=== PATIENT | female | born 1965 | race African-American/Black ===

== ENCOUNTER 2021-04-02 14:31 | Inpatient (IN) | payer MEDICARE, MEDICAID ==
[~2021-04-02] VITALS: Ht 170.2 cm; Wt 51.8 kg
[~2021-04-02 14:31] MED LIST: ALPR1TAB2 MT
[2021-04-02 17:14] LABS: BASOPHILS % 1.9 % (0.0-2.0); EOSINOPHILS % 0.6 % (0.0-5.0); LYMPHOCYTES % 7.6 % (20.0-50.0); MEAN CORPUSCULAR HEMOGLOBIN 31.8 pg (28.0-32.0); MEAN CORPUSCULAR VOLUME 94.6 fL (81.0-99.0); MEAN PLATELET VOLUME 7.6 fl (7.4-10.4); MONOCYTES % 11.8 % (2.0-8.0); NEUTROPHILS % 78.1 % (40.0-76.0); PLATELET 315 x1000/uL (130-400); RED BLOOD CELL COUNT 1.79 mill/uL (4.2-5.4); RED CELL DISTRIBUTION WIDTH 18.9 % (11.6-14.6)
[2021-04-02 17:18] LABS: HEMATOCRIT. 16.9 % (36.0-48.0); HEMOGLOBIN. 5.7 g/dL (12.0-16.0)
[2021-04-02 17:20] LABS: CHLORIDE 100 mEq/L (98-107)
[2021-04-02] MEDS ORDERED: MORPHINE SULFATE 4 MG/ML CPJ (NOT FOR IM USE) IV ONE (17:30)
[2021-04-02] MEDS ORDERED: FUROSEMIDE 100MG/10ML VIAL IV STA (18:36)
[2021-04-02] MEDS ORDERED: ONDANSETRON HCL 4MG/2ML INJ IV ONE (18:45)
[2021-04-02] MEDS ORDERED: INSULIN REGULAR (HUMULIN R) 300UNITS/3ML VIAL IV ONE (18:45)
[2021-04-02] MEDS ORDERED: CALCIUM CHLORIDE 1GM/10ML SYR IV ONE (18:45)
[2021-04-02] MEDS ORDERED: DEXTROSE 50% WATER 50ML SYRINGE IV ONE ×2 (18:45→22:00)
[2021-04-02] MEDS ORDERED: ALBUTEROL (0.083%) 2.5MG/3ML NEB HHN ONE (18:45)
[2021-04-02] MEDS ORDERED: LORAZEPAM 2MG/ML CPJ IV ONE (20:45)
[2021-04-02] MEDS ORDERED: CALCIUM GLUCONATE 100MG/ML 10ML VIAL IV ONE (20:45)
[2021-04-02] MEDS ORDERED: SODIUM BICARBONATE 8.4% 1 MEQ/ML 50ML SYR IV NR (22:00)
[2021-04-02] MEDS ORDERED: INSULIN REGULAR (HUMULIN R) 300UNITS/3ML VIAL IV NR (22:00)
[2021-04-02 22:05] VITALS: BP 176/101
[2021-04-02 23:00] VITALS: BP 166/106
[2021-04-02 23:17] LABS: HEPATITIS B SURFACE ANTIGEN NEGATIVE
[2021-04-02 23:47] LABS: HEPATITIS A AB IGM NEGATIVE (NEGATIVE)
[2021-04-03] VITALS (13 sets, daily range): BP systolic 101–164; BP diastolic 62–110
[2021-04-03] MEDS ORDERED: ONDANSETRON HCL 4MG/2ML INJ IV PRN (01:30)
[2021-04-03] MEDS ORDERED: NALOXONE HCL 0.4MG/ML VIAL IV PRN (01:30)
[2021-04-03] MEDS ORDERED: MAGNESIUM/ALUMINUM HYDROXIDE/SIMETHICONE 30ML UDC PO PRN (01:30)
[2021-04-03] MEDS ORDERED: ACETAMINOPHEN 325MG TABLET PO PRN (01:30)
[2021-04-03] MEDS ORDERED: DOCUSATE SODIUM 100MG CAPSULE PO PRN (01:30)
[2021-04-03] MEDS ORDERED: CLONIDINE 0.1MG TABLET PO PRN (01:30)
[2021-04-03] MEDS: AMLODIPINE 10MG TABLET PO SCH ×2 (01:54→12:00)
[2021-04-03] MEDS: METOPROLOL TARTRATE 25MG TABLET PO SCH ×2 (01:54→10:00)
[2021-04-03] MEDS: DIPHENHYDRAMINE 50MG/ML VIAL IV PRN ×5 (01:55→23:29)
[2021-04-03] MEDS: MORPHINE SULFATE 2 MG/ML CPJ (NOT FOR IM USE) IV PRN ×2 (01:55→06:18)
[2021-04-03 07:05] LABS: HEMATOCRIT. 21.7 % (36.0-48.0); HEMOGLOBIN. 7.3 g/dL (12.0-16.0); MEAN CORPUSCULAR HEMOGLOBIN 31.5 pg (28.0-32.0); MEAN CORPUSCULAR VOLUME 93.9 fL (81.0-99.0); MEAN PLATELET VOLUME 8.6 fl (7.4-10.4); PLATELET 297 x1000/uL (130-400); RED BLOOD CELL COUNT 2.31 mill/uL (4.2-5.4)
[2021-04-03] MEDS ORDERED: HYDROMORPHONE HCL/PF 2MG/ML CPJ IV PRN (09:15)
[2021-04-03] MEDS ORDERED: LIDOCAINE HCL 1% 20ML VIAL (Pyxis) INJ ONE (10:36)
[2021-04-03] MEDS ORDERED: PHEN100C12 PO (11:17)
[2021-04-03] MEDS ORDERED: CARV12.545 MT (11:17)
[2021-04-03] MEDS ORDERED: LEVO100T9 MT (11:17)
[2021-04-03] MEDS ORDERED: HYDR-4135 MT (11:17)
[2021-04-03] MEDS ORDERED: VANCOMYCIN 1 G PREMIX 200 ML IV NR (12:00)
[2021-04-03] MEDS: HYDROMORPHONE HCL/PF 2MG/ML CPJ IV PRN ×3 (12:00→22:30)
[2021-04-03] MEDS: HYDRALAZINE HCL 50MG TABLET PO SCH ×2 (13:00→21:46)
[2021-04-03] MEDS: PHENYTOIN SODIUM EXTENDED 100MG CAPSULE PO SCH ×2 (14:56→21:45)
[2021-04-03] MEDS: ALPRAZOLAM 0.5 MG TABLET PO SCH ×2 (14:57→21:45)
[2021-04-03] MEDS: LEVOTHYROXINE SODIUM 100MCG TABLET PO SCH (14:57)
[2021-04-03] MEDS: CARVEDILOL 12.5MG TABLET PO SCH ×2 (15:14→21:46)
[2021-04-03 22:19] LABS: PLATELET ESTIMATE NORMAL
[2021-04-04] VITALS (10 sets, daily range): BP systolic 93–162; BP diastolic 42–82
[2021-04-04] MEDS: DIPHENHYDRAMINE 50MG/ML VIAL IV PRN ×4 (05:39→20:15)
[2021-04-04] MEDS: HYDROMORPHONE HCL/PF 2MG/ML CPJ IV PRN ×3 (05:41→18:22)
[2021-04-04] MEDS: PHENYTOIN SODIUM EXTENDED 100MG CAPSULE PO SCH ×3 (05:41→20:15)
[2021-04-04] MEDS: ALPRAZOLAM 0.5 MG TABLET PO SCH ×3 (05:41→22:39)
[2021-04-04] MEDS: AMLODIPINE 10MG TABLET PO SCH ×2 (08:50→09:00)
[2021-04-04] MEDS: LEVOTHYROXINE SODIUM 100MCG TABLET PO SCH (08:50)
[2021-04-04] MEDS: CARVEDILOL 12.5MG TABLET PO SCH ×2 (08:51→20:16)
[2021-04-04] MEDS: HYDRALAZINE HCL 50MG TABLET PO SCH ×2 (08:52→20:16)
[2021-04-04 08:56] LABS: HEMATOCRIT. 28.9 % (36.0-48.0); HEMOGLOBIN. 9.8 g/dL (12.0-16.0); MEAN CORPUSCULAR HEMOGLOBIN 31.3 pg (28.0-32.0); MEAN CORPUSCULAR VOLUME 91.9 fL (81.0-99.0); MEAN PLATELET VOLUME 8.5 fl (7.4-10.4); PLATELET 256 x1000/uL (130-400); RED BLOOD CELL COUNT 3.15 mill/uL (4.2-5.4); RED CELL DISTRIBUTION WIDTH 19.2 % (11.6-14.6)
[2021-04-04] MEDS ORDERED: DIPHENHYDRAMINE 50MG/ML VIAL IV NR (10:30)
[2021-04-04 18:00] LABS: PLATELET ESTIMATE NORMAL
[2021-04-05] MEDS: HYDROMORPHONE HCL/PF 2MG/ML CPJ IV PRN ×3 (00:24→19:52)
[2021-04-05] MEDS: DIPHENHYDRAMINE 50MG/ML VIAL IV PRN ×5 (01:55→21:59)
[2021-04-05 03:48] VITALS: BP 105/72
[2021-04-05] MEDS: PHENYTOIN SODIUM EXTENDED 100MG CAPSULE PO SCH ×3 (06:23→21:58)
[2021-04-05] MEDS: ALPRAZOLAM 0.5 MG TABLET PO SCH ×3 (06:23→21:58)
[2021-04-05 08:00] VITALS: BP 122/97
[2021-04-05] MEDS: LEVOTHYROXINE SODIUM 100MCG TABLET PO SCH (08:12)
[2021-04-05] MEDS: HYDROCODONE/ACETAMINOPHEN 5/325MG TABLET PO PRN (08:13)
[2021-04-05] MEDS: CARVEDILOL 12.5MG TABLET PO SCH ×2 (08:54→21:59)
[2021-04-05] MEDS: HYDRALAZINE HCL 50MG TABLET PO SCH ×2 (08:54→21:58)
[2021-04-05] MEDS: AMLODIPINE 10MG TABLET PO SCH (08:54)
[2021-04-05] MEDS ORDERED: HEPARIN SODIUM 1,000 UNIT/1ML VIAL IV NR (10:00)
[2021-04-05 12:00] VITALS: BP 135/81
[2021-04-05 16:00] VITALS: BP 124/80
[2021-04-05 20:00] VITALS: BP 139/85
[2021-04-06] MEDS: HYDROMORPHONE HCL/PF 2MG/ML CPJ IV PRN ×4 (02:11→21:24)
[2021-04-06 04:45] VITALS: BP 133/87
[2021-04-06] MEDS: DIPHENHYDRAMINE 50MG/ML VIAL IV PRN ×4 (05:20→22:50)
[2021-04-06] MEDS: ALPRAZOLAM 0.5 MG TABLET PO SCH ×3 (05:44→21:22)
[2021-04-06] MEDS: PHENYTOIN SODIUM EXTENDED 100MG CAPSULE PO SCH ×3 (05:45→21:22)
[2021-04-06 08:00] VITALS: BP 138/91
[2021-04-06] MEDS: LEVOTHYROXINE SODIUM 100MCG TABLET PO SCH (08:51)
[2021-04-06] MEDS: CARVEDILOL 12.5MG TABLET PO SCH ×2 (08:52→21:21)
[2021-04-06] MEDS: AMLODIPINE 10MG TABLET PO SCH (08:53)
[2021-04-06] MEDS: HYDRALAZINE HCL 50MG TABLET PO SCH ×2 (08:53→21:22)
[2021-04-06 12:00] VITALS: BP 158/82
[2021-04-06] MEDS: HYDROCODONE/ACETAMINOPHEN 5/325MG TABLET PO PRN ×2 (13:08→18:51)
[2021-04-06 16:00] VITALS: BP 120/82
[2021-04-06 20:00] VITALS: BP 134/91
[2021-04-06 20:13] LABS: HEPATITIS B SURFACE ANTIGEN NEGATIVE
[2021-04-06 20:42] LABS: HEPATITIS A AB IGM NEGATIVE (NEGATIVE)
[2021-04-07] VITALS (7 sets, daily range): BP systolic 101–147; BP diastolic 63–101
[2021-04-07] MEDS: HYDROCODONE/ACETAMINOPHEN 5/325MG TABLET PO PRN ×2 (01:32→08:46)
[2021-04-07] MEDS: HYDROMORPHONE HCL/PF 2MG/ML CPJ IV PRN ×2 (03:48→10:17)
[2021-04-07] MEDS: DIPHENHYDRAMINE 50MG/ML VIAL IV PRN ×2 (06:06→11:16)
[2021-04-07] MEDS: ALPRAZOLAM 0.5 MG TABLET PO SCH (06:06)
[2021-04-07] MEDS: PHENYTOIN SODIUM EXTENDED 100MG CAPSULE PO SCH (06:06)
[2021-04-07 07:14] LABS: BASOPHILS % 0.8 % (0.0-2.0); HEMATOCRIT. 27.9 % (36.0-48.0); HEMOGLOBIN. 9.1 g/dL (12.0-16.0); LYMPHOCYTES % 18.3 % (20.0-50.0); MEAN CORPUSCULAR VOLUME 94.5 fL (81.0-99.0); MEAN PLATELET VOLUME 8.2 fl (7.4-10.4); MONOCYTES % 13.1 % (2.0-8.0); NEUTROPHILS % 61.8 % (40.0-76.0); PLATELET 333 x1000/uL (130-400); RED BLOOD CELL COUNT 2.95 mill/uL (4.2-5.4); RED CELL DISTRIBUTION WIDTH 18.7 % (11.6-14.6)
[2021-04-07] MEDS: LEVOTHYROXINE SODIUM 100MCG TABLET PO SCH (08:46)
[2021-04-07] MEDS: CARVEDILOL 12.5MG TABLET PO SCH (08:46)
[2021-04-07] MEDS: AMLODIPINE 10MG TABLET PO SCH (08:47)
[2021-04-07] MEDS: HYDRALAZINE HCL 50MG TABLET PO SCH (08:47)
[2021-04-07] MEDS ORDERED: VANCOMYCIN 750 MG PREMIX 150 ML IV NR (12:00)
== END 2021-04-07 18:24 | disposition home health service (06) | DRG 470 ==
LOC: ER 14:31 → 5EST 19:03 → ENRESERV 20:33
PROVIDERS: ADMIT Hospitalist; ATTEND Hospitalist
PROC: 30233N1 Transfusion of Nonautologous Red Blood Cells into Peripheral Vein, Percutaneous Approach (ICD-10-PCS; 2021-04-02)
PROC: 5A1D70Z Performance of Urinary Filtration, Intermittent, Less than 6 Hours Per Day (ICD-10-PCS; principal; 2021-04-03)
PROC: 02HV33Z Insertion of Infusion Device into Superior Vena Cava, Percutaneous Approach (ICD-10-PCS; 2021-04-03)
PROC: B548ZZA Ultrasonography of Superior Vena Cava, Guidance (ICD-10-PCS; 2021-04-03)
PROC: 5A1D70Z Performance of Urinary Filtration, Intermittent, Less than 6 Hours Per Day (ICD-10-PCS; 2021-04-05)
PROC: 5A1D70Z Performance of Urinary Filtration, Intermittent, Less than 6 Hours Per Day (ICD-10-PCS; 2021-04-07)
DX: N18.6 End stage renal disease (principal); I50.33 Acute on chronic diastolic (congestive) heart failure; E44.0 Moderate protein-calorie malnutrition; D63.1 Anemia in chronic kidney disease; E11.22 Type 2 diabetes mellitus with diabetic chronic kidney disease; E87.1 Hypo-osmolality and hyponatremia; K74.60 Unspecified cirrhosis of liver; I13.2 Hypertensive heart and chronic kidney disease with heart failure and with stage 5 chronic kidney disease, or end stage renal disease; E03.9 Hypothyroidism, unspecified; E78.5 Hyperlipidemia, unspecified; E87.5 Hyperkalemia; R07.89 Other chest pain; F17.200 Nicotine dependence, unspecified, uncomplicated; F10.10 Alcohol abuse, uncomplicated; Z20.822 Contact with and (suspected) exposure to COVID-19; F31.9 Bipolar disorder, unspecified; G40.909 Epilepsy, unspecified, not intractable, without status epilepticus; G89.4 Chronic pain syndrome; Y90.9 Presence of alcohol in blood, level not specified; F41.9 Anxiety disorder, unspecified; Z99.2 Dependence on renal dialysis; Z91.018 Allergy to other foods; Z82.49 Family history of ischemic heart disease and other diseases of the circulatory system; Z71.6 Tobacco abuse counseling; Z68.1 Body mass index [BMI] 19.9 or less, adult
CPT/HCPCS: 36415; 71045; 76937; 80048; 80053; 80202; 83880; 84132; 84484; 85025; 86705; 86709; 86803; 86850; 86900; 86920; 87340; 87426; 93005; 94640; 99285; C1725; J0610; J1170; J1200; J1644; J1815; J1940; J2060; J2270; J2405; J3370; J3490; P9016

== ENCOUNTER 2021-04-28 12:44 | Inpatient (IN) | payer MEDICARE, MEDICAID ==
[~2021-04-28] VITALS: Ht 170.2 cm; Wt 52.6 kg
[2021-04-28 08:00] VITALS: BP 164/114
[~2021-04-28 12:44] MED LIST changes: +CARV12.545 MT; +HYDR-4135 MT; +LEVO100T9 MT; +PHEN100C12 PO
[2021-04-28] MEDS ORDERED: ASPIRIN 325MG TABLET PO ONE (13:45)
[2021-04-28] MEDS ORDERED: ACETAMINOPHEN 325MG TABLET PO ONE (13:45)
[2021-04-28] MEDS ORDERED: MORPHINE SULFATE 4 MG/ML CPJ (NOT FOR IM USE) IV ONE (14:45)
[2021-04-28 15:13] LABS: EOSINOPHILS % 2.3 % (0.0-5.0); HEMATOCRIT. 24.3 % (36.0-48.0); LYMPHOCYTES % 12.4 % (20.0-50.0); MEAN CORPUSCULAR HEMOGLOBIN 30.7 pg (28.0-32.0); MEAN CORPUSCULAR VOLUME 93.3 fL (81.0-99.0); MEAN PLATELET VOLUME 7.7 fl (7.4-10.4); MONOCYTES % 6.9 % (2.0-8.0); NEUTROPHILS % 77.4 % (40.0-76.0); PLATELET 375 x1000/uL (130-400); RED CELL DISTRIBUTION WIDTH 18.2 % (11.6-14.6)
[2021-04-28 15:21] LABS: CHLORIDE 98 mEq/L (98-107)
[2021-04-28 17:55] LABS: HEPATITIS B SURFACE ANTIGEN NEGATIVE
[2021-04-28 18:00] VITALS: BP 167/114
[2021-04-28] MEDS: LORAZEPAM 2MG/ML CPJ IV PRN (18:12)
[2021-04-28] MEDS ORDERED: HYDRALAZINE 20MG/ML VIAL IV PRN (18:15)
[2021-04-28] MEDS: DIPHENHYDRAMINE 50MG/ML VIAL IV PRN (18:15)
[2021-04-28] MEDS ORDERED: MAGNESIUM/ALUMINUM HYDROXIDE/SIMETHICONE 30ML UDC PO PRN (19:30)
[2021-04-28] MEDS ORDERED: DIPHENHYDRAMINE 50MG/ML VIAL IV PRN (19:30)
[2021-04-28] MEDS ORDERED: ACETAMINOPHEN 325MG TABLET PO PRN (19:30)
[2021-04-28] MEDS ORDERED: CLONIDINE 0.1MG TABLET PO PRN (19:30)
[2021-04-28] MEDS ORDERED: ONDANSETRON HCL 4MG/2ML INJ IV PRN (19:30)
[2021-04-28 20:00] VITALS: BP 155/101
[2021-04-28] MEDS ORDERED: HYDRALAZINE 20MG/ML VIAL IV SCH (20:00)
[2021-04-28] MEDS: ALPRAZOLAM 0.5 MG TABLET PO PRN (20:39)
[2021-04-28] MEDS ORDERED: VANCOMYCIN 1 G PREMIX 200 ML IV NR (21:00)
[2021-04-28] MEDS: AMLODIPINE 5MG TABLET PO SCH (21:30)
[2021-04-28] MEDS: CARVEDILOL 12.5MG TABLET PO SCH (21:37)
[2021-04-28] MEDS: SODIUM CHLORIDE 0.9% INJ 3ML FLUSH IVF SCH (21:38)
[2021-04-28] MEDS: PHENYTOIN SODIUM EXTENDED 100MG CAPSULE PO SCH (21:42)
[2021-04-28] MEDS: HYDRALAZINE HCL 100MG TABLET PO SCH (22:00)
[2021-04-28] MEDS: CEFEPIME 500 MG in DEXTROSE 5% WATER 50 ML IV SCH (23:41)
[2021-04-29 00:19] VITALS: BP 129/60
[2021-04-29] MEDS: DIPHENHYDRAMINE 50MG/ML VIAL IV PRN ×4 (02:30→18:57)
[2021-04-29] MEDS: ACETAMINOPHEN 325MG TABLET PO PRN ×3 (02:30→20:16)
[2021-04-29 04:37] VITALS: BP 125/85
[2021-04-29] MEDS: PHENYTOIN SODIUM EXTENDED 100MG CAPSULE PO SCH ×3 (05:09→22:10)
[2021-04-29] MEDS: SODIUM CHLORIDE 0.9% INJ 3ML FLUSH IVF SCH ×3 (05:09→22:11)
[2021-04-29] MEDS: ALPRAZOLAM 0.5 MG TABLET PO PRN ×3 (05:09→22:01)
[2021-04-29] MEDS: HYDRALAZINE HCL 100MG TABLET PO SCH ×3 (05:10→21:15)
[2021-04-29] MEDS: LEVOTHYROXINE SODIUM 100MCG TABLET PO SCH (05:10)
[2021-04-29 08:00] VITALS: BP_SYST 120; BP_SYST 153; BP_DIAS 83; BP_DIAS 94
[2021-04-29] MEDS: AMLODIPINE 5MG TABLET PO SCH ×2 (09:00→20:07)
[2021-04-29] MEDS: CARVEDILOL 12.5MG TABLET PO SCH ×2 (09:00→20:06)
[2021-04-29] MEDS ORDERED: HEPARIN SODIUM 1,000 UNIT/1ML VIAL IV SCH (09:15)
[2021-04-29 12:00] VITALS: BP 153/94
[2021-04-29 13:17] LABS: BASOPHILS % 1.2 % (0.0-2.0); EOSINOPHILS % 6.1 % (0.0-5.0); HEMATOCRIT. 24.7 % (36.0-48.0); HEMOGLOBIN. 8.1 g/dL (12.0-16.0); LYMPHOCYTES % 11.8 % (20.0-50.0); MEAN CORPUSCULAR HEMOGLOBIN 31.3 pg (28.0-32.0); MEAN PLATELET VOLUME 7.8 fl (7.4-10.4); MONOCYTES % 9.4 % (2.0-8.0); NEUTROPHILS % 71.5 % (40.0-76.0); PLATELET 314 x1000/uL (130-400); RED CELL DISTRIBUTION WIDTH 18.3 % (11.6-14.6)
[2021-04-29] MEDS ORDERED: VANCOMYCIN 500 MG PREMIX 100 ML IV SCH (14:00)
[2021-04-29 16:00] VITALS: BP 140/95
[2021-04-29 20:00] VITALS: BP 158/96
[2021-04-29] MEDS: ZOLPIDEM TARTRATE 5MG TABLET PO PRN (20:07)
[2021-04-29] MEDS: LORAZEPAM 2MG/ML CPJ IV PRN (21:15)
[2021-04-29] MEDS: CEFEPIME 500 MG in DEXTROSE 5% WATER 50 ML IV SCH (22:24)
[2021-04-30] VITALS: BP 155/90
[2021-04-30 04:00] VITALS: BP 158/89
[2021-04-30] MEDS: LORAZEPAM 2MG/ML CPJ IV PRN ×3 (04:10→21:09)
[2021-04-30] MEDS: DIPHENHYDRAMINE 50MG/ML VIAL IV PRN ×3 (04:10→18:18)
[2021-04-30] MEDS: LEVOTHYROXINE SODIUM 100MCG TABLET PO SCH (05:17)
[2021-04-30] MEDS: HYDRALAZINE HCL 100MG TABLET PO SCH ×3 (05:17→23:13)
[2021-04-30] MEDS: SODIUM CHLORIDE 0.9% INJ 3ML FLUSH IVF SCH ×3 (05:17→22:49)
[2021-04-30] MEDS: PHENYTOIN SODIUM EXTENDED 100MG CAPSULE PO SCH ×3 (05:17→23:12)
[2021-04-30 08:00] VITALS: BP 144/95
[2021-04-30] MEDS: AMLODIPINE 5MG TABLET PO SCH ×2 (08:36→23:13)
[2021-04-30] MEDS: ALPRAZOLAM 0.5 MG TABLET PO PRN ×3 (08:37→22:49)
[2021-04-30] MEDS: CARVEDILOL 12.5MG TABLET PO SCH ×2 (08:37→23:13)
[2021-04-30 09:46] LABS: BASOPHILS % 1.1 % (0.0-2.0); EOSINOPHILS % 7.9 % (0.0-5.0); HEMATOCRIT. 25.2 % (36.0-48.0); HEMOGLOBIN. 8.1 g/dL (12.0-16.0); LYMPHOCYTES % 13.6 % (20.0-50.0); MEAN CORPUSCULAR HEMOGLOBIN 31.1 pg (28.0-32.0); MEAN CORPUSCULAR VOLUME 96.9 fL (81.0-99.0); MEAN PLATELET VOLUME 7.9 fl (7.4-10.4); MONOCYTES % 14.9 % (2.0-8.0); NEUTROPHILS % 62.5 % (40.0-76.0); PLATELET 260 x1000/uL (130-400)
[2021-04-30] MEDS: HYDROMORPHONE HCL/PF 2MG/ML CPJ IV PRN ×2 (11:56→19:32)
[2021-04-30 12:00] VITALS: BP 147/67
[2021-04-30 16:00] VITALS: BP 136/72
[2021-04-30 20:03] VITALS: BP 148/92
[2021-04-30] MEDS ORDERED: NALOXONE HCL 0.4MG/ML VIAL IV PRN (22:30)
[2021-04-30] MEDS: CEFEPIME 500 MG in DEXTROSE 5% WATER 50 ML IV SCH (22:39)
[2021-05-01] VITALS: BP 141/82
[2021-05-01] MEDS: ZOLPIDEM TARTRATE 5MG TABLET PO PRN (00:40)
[2021-05-01] MEDS: HYDROMORPHONE HCL/PF 2MG/ML CPJ IV PRN ×4 (01:40→22:48)
[2021-05-01 04:00] VITALS: BP 123/81
[2021-05-01] MEDS: DIPHENHYDRAMINE 50MG/ML VIAL IV PRN ×3 (04:32→19:51)
[2021-05-01] MEDS: PHENYTOIN SODIUM EXTENDED 100MG CAPSULE PO SCH ×3 (05:41→19:51)
[2021-05-01] MEDS: HYDRALAZINE HCL 100MG TABLET PO SCH ×3 (05:43→19:52)
[2021-05-01] MEDS: LORAZEPAM 2MG/ML CPJ IV PRN ×2 (05:50→17:30)
[2021-05-01] MEDS: SODIUM CHLORIDE 0.9% INJ 3ML FLUSH IVF SCH ×3 (06:39→21:30)
[2021-05-01] MEDS: LEVOTHYROXINE SODIUM 100MCG TABLET PO SCH (06:39)
[2021-05-01 07:33] LABS: BASOPHILS % 0.5 % (0.0-2.0); EOSINOPHILS % 7.6 % (0.0-5.0); HEMATOCRIT. 24.8 % (36.0-48.0); LYMPHOCYTES % 20.4 % (20.0-50.0); MEAN CORPUSCULAR VOLUME 99.4 fL (81.0-99.0); MEAN PLATELET VOLUME 7.9 fl (7.4-10.4); NEUTROPHILS % 58.5 % (40.0-76.0); PLATELET 283 x1000/uL (130-400); RED CELL DISTRIBUTION WIDTH 18.4 % (11.6-14.6)
[2021-05-01 08:00] VITALS: BP 121/88
[2021-05-01] MEDS: CARVEDILOL 12.5MG TABLET PO SCH ×2 (09:21→19:52)
[2021-05-01] MEDS: AMLODIPINE 5MG TABLET PO SCH ×2 (09:22→19:51)
[2021-05-01] MEDS: ALPRAZOLAM 0.5 MG TABLET PO PRN ×2 (11:32→19:51)
[2021-05-01 12:00] VITALS: BP 117/86
[2021-05-01 16:00] VITALS: BP 123/82
[2021-05-01] MEDS: CEFEPIME 500 MG in DEXTROSE 5% WATER 50 ML IV SCH (19:50)
[2021-05-01 20:00] VITALS: BP 155/112
[2021-05-02] VITALS: BP 138/84
[2021-05-02] MEDS: LORAZEPAM 2MG/ML CPJ IV PRN ×2 (00:15→09:47)
[2021-05-02] MEDS: DIPHENHYDRAMINE 50MG/ML VIAL IV PRN ×2 (01:58→09:47)
[2021-05-02] MEDS: ALPRAZOLAM 0.5 MG TABLET PO PRN ×2 (03:58→12:25)
[2021-05-02 04:00] VITALS: BP 141/88
[2021-05-02] MEDS: HYDROMORPHONE HCL/PF 2MG/ML CPJ IV PRN (04:45)
[2021-05-02] MEDS: PHENYTOIN SODIUM EXTENDED 100MG CAPSULE PO SCH ×2 (05:27→14:18)
[2021-05-02] MEDS: HYDRALAZINE HCL 100MG TABLET PO SCH ×2 (05:27→14:17)
[2021-05-02] MEDS: SODIUM CHLORIDE 0.9% INJ 3ML FLUSH IVF SCH (05:27)
[2021-05-02] MEDS: LEVOTHYROXINE SODIUM 100MCG TABLET PO SCH (05:27)
[2021-05-02 07:21] LABS: BASOPHILS % 1.4 % (0.0-2.0); EOSINOPHILS % 7.5 % (0.0-5.0); HEMATOCRIT. 23.9 % (36.0-48.0); HEMOGLOBIN. 7.9 g/dL (12.0-16.0); LYMPHOCYTES % 17.8 % (20.0-50.0); MEAN CORPUSCULAR HEMOGLOBIN 31.3 pg (28.0-32.0); MEAN CORPUSCULAR VOLUME 94.3 fL (81.0-99.0); MEAN PLATELET VOLUME 8.4 fl (7.4-10.4); MONOCYTES % 14.6 % (2.0-8.0); NEUTROPHILS % 58.7 % (40.0-76.0); PLATELET 275 x1000/uL (130-400); RED BLOOD CELL COUNT 2.53 mill/uL (4.2-5.4); RED CELL DISTRIBUTION WIDTH 17.9 % (11.6-14.6)
[2021-05-02 08:09] VITALS: BP 135/85
[2021-05-02] MEDS: CARVEDILOL 12.5MG TABLET PO SCH (09:47)
[2021-05-02] MEDS: AMLODIPINE 5MG TABLET PO SCH (09:47)
[2021-05-02 12:00] VITALS: BP 123/79
[2021-05-02 16:03] VITALS: BP 123/79
== END 2021-05-02 16:25 | disposition home or self-care (01) | DRG 193 ==
LOC: ER 12:44 → 8WST 14:42 → ENRESERV 15:41
PROVIDERS: ADMIT Internal Medicine; ATTEND Internal Medicine
PROC: 05HY33Z Insertion of Infusion Device into Upper Vein, Percutaneous Approach (ICD-10-PCS; principal; 2021-04-28)
DX: I33.0 Acute and subacute infective endocarditis (principal); I13.2 Hypertensive heart and chronic kidney disease with heart failure and with stage 5 chronic kidney disease, or end stage renal disease; J91.8 Pleural effusion in other conditions classified elsewhere; N18.6 End stage renal disease; D63.8 Anemia in other chronic diseases classified elsewhere; M94.0 Chondrocostal junction syndrome [Tietze]; K76.0 Fatty (change of) liver, not elsewhere classified; E87.5 Hyperkalemia; E03.9 Hypothyroidism, unspecified; F10.10 Alcohol abuse, uncomplicated; K21.9 Gastro-esophageal reflux disease without esophagitis; F41.1 Generalized anxiety disorder; G40.909 Epilepsy, unspecified, not intractable, without status epilepticus; I50.9 Heart failure, unspecified; Z86.14 Personal history of Methicillin resistant Staphylococcus aureus infection; Z91.15 Patient's noncompliance with renal dialysis; Z91.19 Patient's noncompliance with other medical treatment and regimen; Z99.2 Dependence on renal dialysis; Z91.018 Allergy to other foods; Z91.010 Allergy to peanuts
CPT/HCPCS: 36415; 71045; 80048; 80051; 80053; 80202; 83605; 83880; 84484; 85025; 86705; 86709; 86803; 87340; 93005; 99291; C1893; J0360; J0692; J1170; J1200; J1644; J2060; J2270; J3370; J7060

== ENCOUNTER 2021-06-14 20:20 | Inpatient (IN) | payer MEDICARE, MEDICAID ==
[~2021-06-14] VITALS: Ht 162.6 cm; Wt 53.1 kg
[2021-06-14] MEDS ORDERED: MORPHINE SULFATE 4 MG/ML CPJ (NOT FOR IM USE) IV STA (21:55)
[2021-06-14] MEDS ORDERED: ONDANSETRON HCL 4MG/2ML INJ IV STA (21:55)
[2021-06-14] MEDS ORDERED: DIPHENHYDRAMINE 50MG/ML VIAL IV ONE (22:00)
[2021-06-14] MEDS ORDERED: MORPHINE SULFATE 2 MG/ML CPJ (NOT FOR IM USE) IV SCH (23:00)
[2021-06-14 23:46] LABS: BASOPHILS % 1.1 % (0.0-2.0); EOSINOPHILS % 6.5 % (0.0-5.0); HEMATOCRIT. 22.4 % (36.0-48.0); HEMOGLOBIN. 7.5 g/dL (12.0-16.0); LYMPHOCYTES % 21.4 % (20.0-50.0); MEAN CORPUSCULAR HEMOGLOBIN 32.1 pg (28.0-32.0); MEAN CORPUSCULAR VOLUME 95.8 fL (81.0-99.0); MONOCYTES % 10.8 % (2.0-8.0); NEUTROPHILS % 60.2 % (40.0-76.0); PLATELET 197 x1000/uL (130-400); RED BLOOD CELL COUNT 2.34 mill/uL (4.2-5.4); RED CELL DISTRIBUTION WIDTH 16.3 % (11.6-14.6)
[2021-06-14 23:48] LABS: CHLORIDE 104 mEq/L (98-107)
[2021-06-14 23:56] LABS: INR 1.2; PROTHROMBIN TIME 12.4 sec (9.6-11.0)
[2021-06-15] MEDS: LORAZEPAM 1MG TABLET PO SCH ×2 (03:52→11:21)
[2021-06-15] MEDS: HYDROCODONE/ACETAMINOPHEN 5/325MG TABLET PO PRN (05:09)
[2021-06-15 08:25] VITALS: BP 178/125
[2021-06-15] MEDS ORDERED: DOCUSATE SODIUM 100MG CAPSULE PO PRN (09:30)
[2021-06-15] MEDS ORDERED: MAGNESIUM/ALUMINUM HYDROXIDE/SIMETHICONE 30ML UDC PO PRN (09:30)
[2021-06-15] MEDS ORDERED: IPRATROPIUM/ALBUTEROL 0.5-3(2.5)MG/3ML NEB HHN PRN (09:30)
[2021-06-15] MEDS: PHENYTOIN SODIUM EXTENDED 100MG CAPSULE PO SCH ×3 (10:09→22:44)
[2021-06-15] MEDS: HYDROMORPHONE HCL/PF 2MG/ML CPJ IV PRN ×3 (10:09→22:38)
[2021-06-15] MEDS: CARVEDILOL 12.5MG TABLET PO SCH ×2 (10:10→22:45)
[2021-06-15] MEDS: HYDRALAZINE HCL 50MG TABLET PO SCH ×2 (10:11→21:00)
[2021-06-15 12:00] VITALS: BP 167/116
[2021-06-15 12:34] LABS: TOTAL IRON BINDING CAPACITY 326 ug/dL (250-450)
[2021-06-15] MEDS: DIPHENHYDRAMINE 50MG/ML VIAL IV PRN ×2 (13:06→23:48)
[2021-06-15] MEDS: CLONIDINE 0.1MG TABLET PO PRN (13:30)
[2021-06-15 14:21] LABS: HEPATITIS B SURFACE ANTIGEN NEGATIVE
[2021-06-15] MEDS ORDERED: LIDOCAINE HCL 1% 30ML VIAL (10MG/ML) ONE (14:37)
[2021-06-15] MEDS ORDERED: SODIUM BICARBONATE 4% (2.4MEQ) 5ML VIAL IV ONE (14:38)
[2021-06-15 16:20] VITALS: BP 138/98
[2021-06-15] MEDS: ALPRAZOLAM 0.5 MG TABLET PO PRN (18:12)
[2021-06-15] MEDS: ONDANSETRON HCL 4MG/2ML INJ IV PRN (18:12)
[2021-06-15 20:00] VITALS: BP 140/97
[2021-06-16] VITALS: BP 148/103
[2021-06-16] MEDS: ALPRAZOLAM 0.5 MG TABLET PO PRN ×2 (02:14→16:40)
[2021-06-16] MEDS: EPOETIN ALFA-EPBX 10,000 UNIT/ML VIAL SUBCUT SCH (06:20)
[2021-06-16] MEDS: OMEPRAZOLE 20MG CAPSULE EXTENDED RELEASE PO SCH (06:20)
[2021-06-16] MEDS: LEVOTHYROXINE SODIUM 100MCG TABLET PO SCH (06:20)
[2021-06-16] MEDS: PHENYTOIN SODIUM EXTENDED 100MG CAPSULE PO SCH ×3 (06:21→21:36)
[2021-06-16 06:51] LABS: HEMATOCRIT. 22.7 % (36.0-48.0); HEMOGLOBIN. 7.7 g/dL (12.0-16.0); MEAN CORPUSCULAR HEMOGLOBIN 32.3 pg (28.0-32.0); MEAN CORPUSCULAR VOLUME 95.1 fL (81.0-99.0); MEAN PLATELET VOLUME 8.2 fl (7.4-10.4); PLATELET 168 x1000/uL (130-400); RED BLOOD CELL COUNT 2.39 mill/uL (4.2-5.4); RED CELL DISTRIBUTION WIDTH 16.3 % (11.6-14.6)
[2021-06-16] MEDS: HYDROMORPHONE HCL/PF 2MG/ML CPJ IV PRN ×3 (06:57→20:03)
[2021-06-16 08:00] VITALS: BP 159/95
[2021-06-16] MEDS: FERROUS SULFATE 325MG TABLET PO SCH (09:17)
[2021-06-16] MEDS: CARVEDILOL 12.5MG TABLET PO SCH ×2 (09:17→21:37)
[2021-06-16] MEDS: HYDRALAZINE HCL 50MG TABLET PO SCH ×2 (09:17→21:37)
[2021-06-16] MEDS: DIPHENHYDRAMINE 50MG/ML VIAL IV PRN ×2 (09:21→18:04)
[2021-06-16] MEDS: LORAZEPAM 1MG TABLET PO SCH (10:32)
[2021-06-16 12:00] VITALS: BP 144/98
[2021-06-16 16:00] VITALS: BP 129/79
[2021-06-16 19:46] LABS: PLATELET ESTIMATE NORMAL
[2021-06-16 20:00] VITALS: BP 114/66
[2021-06-17] VITALS: BP 100/63
[2021-06-17] MEDS: ALPRAZOLAM 0.5 MG TABLET PO PRN ×2 (01:45→17:32)
[2021-06-17] MEDS: HYDROMORPHONE HCL/PF 2MG/ML CPJ IV PRN ×4 (02:30→22:17)
[2021-06-17] MEDS: DIPHENHYDRAMINE 50MG/ML VIAL IV PRN ×3 (03:18→20:09)
[2021-06-17 04:00] VITALS: BP 124/85
[2021-06-17] MEDS: OMEPRAZOLE 20MG CAPSULE EXTENDED RELEASE PO SCH (06:38)
[2021-06-17] MEDS: PHENYTOIN SODIUM EXTENDED 100MG CAPSULE PO SCH ×3 (06:38→22:09)
[2021-06-17] MEDS: LEVOTHYROXINE SODIUM 100MCG TABLET PO SCH (06:38)
[2021-06-17 07:23] LABS: HEMATOCRIT. 24.7 % (36.0-48.0); HEMOGLOBIN. 8.3 g/dL (12.0-16.0); MEAN CORPUSCULAR HEMOGLOBIN 32.8 pg (28.0-32.0); MEAN PLATELET VOLUME 8.5 fl (7.4-10.4); PLATELET 208 x1000/uL (130-400); RED BLOOD CELL COUNT 2.54 mill/uL (4.2-5.4); RED CELL DISTRIBUTION WIDTH 16.4 % (11.6-14.6)
[2021-06-17 08:00] VITALS: BP 139/85
[2021-06-17] MEDS: FERROUS SULFATE 325MG TABLET PO SCH (08:43)
[2021-06-17] MEDS: LORAZEPAM 1MG TABLET PO SCH (08:44)
[2021-06-17] MEDS: HYDRALAZINE HCL 50MG TABLET PO SCH ×2 (08:44→22:10)
[2021-06-17] MEDS: CARVEDILOL 12.5MG TABLET PO SCH ×2 (08:44→22:10)
[2021-06-17 12:00] VITALS: BP 128/88
[2021-06-17 14:29] LABS: NUCLEATED RED BLOOD CELLS 1 /100 WBC; PLATELET ESTIMATE NORMAL
[2021-06-17] MEDS ORDERED: HEPARIN SODIUM 1,000 UNIT/1ML VIAL IV ONE (15:15)
[2021-06-17 16:00] VITALS: BP 154/95
[2021-06-17 20:00] VITALS: BP 144/58
[2021-06-17] MEDS: EPOETIN ALFA-EPBX 10,000 UNIT/ML VIAL SUBCUT SCH (22:10)
[2021-06-18] VITALS: BP 137/88
[2021-06-18] MEDS: ALPRAZOLAM 0.5 MG TABLET PO PRN ×3 (01:37→18:53)
[2021-06-18] MEDS: HYDROCODONE/ACETAMINOPHEN 5/325MG TABLET PO PRN (02:44)
[2021-06-18 04:00] VITALS: BP 139/83
[2021-06-18] MEDS: HYDROMORPHONE HCL/PF 2MG/ML CPJ IV PRN ×4 (04:34→23:44)
[2021-06-18] MEDS: PHENYTOIN SODIUM EXTENDED 100MG CAPSULE PO SCH ×3 (05:43→20:39)
[2021-06-18] MEDS: DIPHENHYDRAMINE 50MG/ML VIAL IV PRN ×3 (05:43→20:41)
[2021-06-18] MEDS: OMEPRAZOLE 20MG CAPSULE EXTENDED RELEASE PO SCH (06:20)
[2021-06-18] MEDS: LEVOTHYROXINE SODIUM 100MCG TABLET PO SCH (06:20)
[2021-06-18 08:00] VITALS: BP 138/97
[2021-06-18] MEDS: LORAZEPAM 1MG TABLET PO SCH (08:54)
[2021-06-18] MEDS: FERROUS SULFATE 325MG TABLET PO SCH (08:54)
[2021-06-18] MEDS: ONDANSETRON HCL 4MG/2ML INJ IV PRN (08:55)
[2021-06-18] MEDS: CARVEDILOL 12.5MG TABLET PO SCH ×2 (08:55→20:39)
[2021-06-18] MEDS: HYDRALAZINE HCL 50MG TABLET PO SCH ×2 (08:58→20:39)
[2021-06-18 16:00] VITALS: BP 119/90
[2021-06-18 20:58] VITALS: BP 148/95
[2021-06-18 23:48] VITALS: BP 144/92
[2021-06-19] MEDS: HYDROCODONE/ACETAMINOPHEN 5/325MG TABLET PO PRN (02:17)
[2021-06-19] MEDS: ALPRAZOLAM 0.5 MG TABLET PO PRN (03:03)
[2021-06-19 04:00] VITALS: BP 141/87
[2021-06-19] MEDS: DIPHENHYDRAMINE 50MG/ML VIAL IV PRN ×3 (04:42→18:23)
[2021-06-19] MEDS: PHENYTOIN SODIUM EXTENDED 100MG CAPSULE PO SCH ×3 (05:48→21:47)
[2021-06-19] MEDS: HYDROMORPHONE HCL/PF 2MG/ML CPJ IV PRN (05:49)
[2021-06-19] MEDS: FAMOTIDINE 20MG TABLET PO SCH (06:34)
[2021-06-19] MEDS: LEVOTHYROXINE SODIUM 100MCG TABLET PO SCH (06:35)
[2021-06-19 08:00] VITALS: BP 137/97
[2021-06-19] MEDS: HYDRALAZINE HCL 50MG TABLET PO SCH ×2 (09:00→21:47)
[2021-06-19 09:20] LABS: BASOPHILS % 0.8 % (0.0-2.0); EOSINOPHILS % 6.7 % (0.0-5.0); HEMOGLOBIN. 8.2 g/dL (12.0-16.0); LYMPHOCYTES % 23.9 % (20.0-50.0); MEAN CORPUSCULAR HEMOGLOBIN 32.1 pg (28.0-32.0); MEAN CORPUSCULAR VOLUME 97.8 fL (81.0-99.0); MONOCYTES % 13.6 % (2.0-8.0); PLATELET 251 x1000/uL (130-400); RED BLOOD CELL COUNT 2.56 mill/uL (4.2-5.4); RED CELL DISTRIBUTION WIDTH 16.9 % (11.6-14.6)
[2021-06-19] MEDS: FERROUS SULFATE 325MG TABLET PO SCH (09:22)
[2021-06-19] MEDS: CARVEDILOL 12.5MG TABLET PO SCH ×2 (09:24→21:48)
[2021-06-19 12:00] VITALS: BP 140/88
[2021-06-19] MEDS ORDERED: HEPARIN SODIUM 1,000 UNIT/1ML VIAL IV SCH (12:00)
[2021-06-19] MEDS ORDERED: HYDROMORPHONE HCL/PF 2MG/ML CPJ IM PRN (13:15)
[2021-06-19] MEDS ORDERED: NALOXONE HCL 0.4MG/ML VIAL IV PRN (13:30)
[2021-06-19] MEDS: ALPRAZOLAM 0.5 MG TABLET PO SCH ×2 (14:54→21:46)
[2021-06-19 16:39] VITALS: BP 145/70
[2021-06-19 20:00] VITALS: BP 139/80
[2021-06-19] MEDS: EPOETIN ALFA-EPBX 10,000 UNIT/ML VIAL SUBCUT SCH (21:48)
[2021-06-20] VITALS: BP 142/82
[2021-06-20 04:00] VITALS: BP 145/94
[2021-06-20] MEDS: ALPRAZOLAM 0.5 MG TABLET PO SCH ×3 (06:28→21:01)
[2021-06-20] MEDS: PHENYTOIN SODIUM EXTENDED 100MG CAPSULE PO SCH ×3 (06:28→21:02)
[2021-06-20] MEDS: FAMOTIDINE 20MG TABLET PO SCH (06:28)
[2021-06-20] MEDS: LEVOTHYROXINE SODIUM 100MCG TABLET PO SCH (06:28)
[2021-06-20] MEDS: DIPHENHYDRAMINE 50MG/ML VIAL IV PRN ×3 (07:00→20:07)
[2021-06-20] MEDS: HYDRALAZINE HCL 50MG TABLET PO SCH ×2 (09:17→20:09)
[2021-06-20] MEDS: CARVEDILOL 12.5MG TABLET PO SCH ×2 (09:17→20:10)
[2021-06-20] MEDS: FERROUS SULFATE 325MG TABLET PO SCH (09:17)
[2021-06-20 12:00] VITALS: BP 144/89
[2021-06-20 16:00] VITALS: BP 133/86
[2021-06-20] MEDS: ACETAMINOPHEN 325MG TABLET PO PRN (16:20)
[2021-06-20 20:00] VITALS: BP 160/102
[2021-06-20 23:31] VITALS: BP 161/103
[2021-06-21 02:00] VITALS: BP 155/97
[2021-06-21] MEDS: DIPHENHYDRAMINE 50MG/ML VIAL IV PRN ×2 (03:34→11:39)
[2021-06-21 04:00] VITALS: BP 154/99
[2021-06-21] MEDS: PHENYTOIN SODIUM EXTENDED 100MG CAPSULE PO SCH ×2 (05:01→14:20)
[2021-06-21] MEDS: LEVOTHYROXINE SODIUM 100MCG TABLET PO SCH (05:05)
[2021-06-21] MEDS: FAMOTIDINE 20MG TABLET PO SCH (05:05)
[2021-06-21] MEDS: ALPRAZOLAM 0.5 MG TABLET PO SCH ×2 (05:05→14:20)
[2021-06-21 08:00] VITALS: BP 165/113
[2021-06-21] MEDS: HYDRALAZINE HCL 50MG TABLET PO SCH (09:00)
[2021-06-21] MEDS: ACETAMINOPHEN 325MG TABLET PO PRN (09:46)
[2021-06-21] MEDS: FERROUS SULFATE 325MG TABLET PO SCH (09:46)
[2021-06-21] MEDS: CARVEDILOL 12.5MG TABLET PO SCH (09:47)
[2021-06-21 10:33] LABS: BASOPHILS % 0.7 % (0.0-2.0); EOSINOPHILS % 4.1 % (0.0-5.0); HEMATOCRIT. 25.5 % (36.0-48.0); HEMOGLOBIN. 8.3 g/dL (12.0-16.0); MEAN CORPUSCULAR HEMOGLOBIN 32.2 pg (28.0-32.0); MEAN CORPUSCULAR VOLUME 99.4 fL (81.0-99.0); MEAN PLATELET VOLUME 7.8 fl (7.4-10.4); MONOCYTES % 11.9 % (2.0-8.0); NEUTROPHILS % 71.3 % (40.0-76.0); PLATELET 249 x1000/uL (130-400); RED BLOOD CELL COUNT 2.56 mill/uL (4.2-5.4); RED CELL DISTRIBUTION WIDTH 17.3 % (11.6-14.6)
[2021-06-21 12:00] VITALS: BP 148/97
[2021-06-21] MEDS ORDERED: HEPARIN SODIUM 1,000 UNIT/1ML VIAL IV NR (12:45)
[2021-06-21 15:16] VITALS: BP 148/97
[2021-06-21 16:00] VITALS: BP 165/87
[2021-06-21] MEDS: CLONIDINE 0.1MG TABLET PO PRN (18:12)
== END 2021-06-21 19:08 | disposition home or self-care (01) | DRG 280 ==
LOC: ER 20:20 → 6WST 06-15 00:16 → EDBEDREQDT 06-15 00:21 → EDBEDREQTM 06-15 00:21 → EDBEDREQ 06-15 00:21 → ENRESERV 06-15 07:09
PROVIDERS: ADMIT Internal Medicine; ATTEND Internal Medicine
PROC: 0W9G3ZZ Drainage of Peritoneal Cavity, Percutaneous Approach (ICD-10-PCS; principal; 2021-06-15)
PROC: 5A1D70Z Performance of Urinary Filtration, Intermittent, Less than 6 Hours Per Day (ICD-10-PCS; 2021-06-15)
PROC: 5A1D70Z Performance of Urinary Filtration, Intermittent, Less than 6 Hours Per Day (ICD-10-PCS; 2021-06-17)
PROC: 5A1D70Z Performance of Urinary Filtration, Intermittent, Less than 6 Hours Per Day (ICD-10-PCS; 2021-06-19)
PROC: 5A1D70Z Performance of Urinary Filtration, Intermittent, Less than 6 Hours Per Day (ICD-10-PCS; 2021-06-21)
DX: K70.31 Alcoholic cirrhosis of liver with ascites (principal); I13.2 Hypertensive heart and chronic kidney disease with heart failure and with stage 5 chronic kidney disease, or end stage renal disease; E44.0 Moderate protein-calorie malnutrition; D63.1 Anemia in chronic kidney disease; N18.6 End stage renal disease; E87.70 Fluid overload, unspecified; G40.909 Epilepsy, unspecified, not intractable, without status epilepticus; J45.909 Unspecified asthma, uncomplicated; I50.9 Heart failure, unspecified; E03.9 Hypothyroidism, unspecified; F41.9 Anxiety disorder, unspecified; Z20.822 Contact with and (suspected) exposure to COVID-19; F31.9 Bipolar disorder, unspecified; E87.5 Hyperkalemia; Z99.2 Dependence on renal dialysis; Z82.49 Family history of ischemic heart disease and other diseases of the circulatory system; Z86.14 Personal history of Methicillin resistant Staphylococcus aureus infection; Z91.010 Allergy to peanuts; Z91.018 Allergy to other foods; Z76.5 Malingerer [conscious simulation]; Z68.20 Body mass index [BMI] 20.0-20.9, adult
CPT/HCPCS: 36415; 49083; 71045; 73521; 80048; 80053; 80076; 82962; 83540; 83550; 83735; 84100; 84484; 85025; 86705; 86709; 86803; 87340; 87426; 93005; 93970; 99285; J0885; J1170; J1200; J1644; J2270; J2405; J3490

== ENCOUNTER 2021-07-02 09:33 | Inpatient (IN) | payer MEDICARE, MEDICAID ==
[~2021-07-02] VITALS: Ht 170.2 cm; Wt 53.5 kg
[2021-07-02 10:29] LABS: BASOPHILS % 0.7 % (0.0-2.0); EOSINOPHILS % 5.1 % (0.0-5.0); HEMATOCRIT. 21.4 % (36.0-48.0); HEMOGLOBIN. 7.1 g/dL (12.0-16.0); MEAN CORPUSCULAR HEMOGLOBIN 31.3 pg (28.0-32.0); MEAN CORPUSCULAR VOLUME 93.8 fL (81.0-99.0); MEAN PLATELET VOLUME 6.3 fl (7.4-10.4); MONOCYTES % 9.4 % (2.0-8.0); NEUTROPHILS % 73.8 % (40.0-76.0); PLATELET 319 x1000/uL (130-400); RED BLOOD CELL COUNT 2.28 mill/uL (4.2-5.4); RED CELL DISTRIBUTION WIDTH 16.1 % (11.6-14.6)
[2021-07-02] MEDS ORDERED: HYDROCODONE/ACETAMINOPHEN 10/325MG TABLET PO ONE (10:30)
[2021-07-02 10:49] LABS: CHLORIDE 95 mEq/L (98-107)
[2021-07-02] MEDS ORDERED: LORAZEPAM 2MG/ML CPJ IV ONE (12:00)
[2021-07-02] MEDS ORDERED: NITROGLYCERIN 0.4MG TABLET SL SL PRN (12:45)
[2021-07-02] MEDS ORDERED: MAGNESIUM/ALUMINUM HYDROXIDE/SIMETHICONE 30ML UDC PO PRN (12:45)
[2021-07-02] MEDS ORDERED: DOCUSATE SODIUM 100MG CAPSULE PO PRN (12:45)
[2021-07-02] MEDS ORDERED: ACETAMINOPHEN 325MG TABLET PO PRN ×2 (12:45)
[2021-07-02] MEDS ORDERED: IPRATROPIUM/ALBUTEROL 0.5-3(2.5)MG/3ML NEB NEB PRN (12:45)
[2021-07-02] MEDS ORDERED: NALOXONE HCL 0.4MG/ML VIAL IV PRN (12:45)
[2021-07-02] MEDS ORDERED: GUAIFENESIN 200MG/10ML SUGAR FREE UDC PO PRN (12:45)
[2021-07-02 13:19] LABS: HEPATITIS B SURFACE ANTIGEN NEGATIVE
[2021-07-02 14:22] LABS: HEMATOCRIT 21.7 % (36.0-48.0); HEMOGLOBIN 7.3 g/dL (12.0-16.0); MEAN CORPUSCULAR HEMOGLOBIN 32.1 pg (28.0-32.0); PLATELET 344 x1000/uL (130-400); RED BLOOD CELL COUNT 2.28 mill/uL (4.2-5.4); RED CELL DISTRIBUTION WIDTH 16.6 % (11.6-14.6)
[2021-07-02 14:37] LABS: CREATINE KINASE 77 IU/L (26-192)
[2021-07-02 14:38] LABS: CREATINE KINASE MB FRACTION 1.9 ng/mL (0.5-3.6)
[2021-07-02 15:00] VITALS: BP_SYST 188; BP_DIAS 101; BP_DIAS 98
[2021-07-02] MEDS: HYDROMORPHONE HCL/PF 2MG/ML CPJ IV PRN ×2 (15:36→21:56)
[2021-07-02] MEDS: HYDRALAZINE HCL 50MG TABLET PO SCH ×2 (15:36→21:10)
[2021-07-02] MEDS: DIPHENHYDRAMINE 50MG/ML VIAL IV PRN (15:36)
[2021-07-02 16:00] VITALS: BP 191/106
[2021-07-02] MEDS: LORAZEPAM 2MG/ML CPJ IV PRN (16:51)
[2021-07-02] MEDS: CLONIDINE 0.1MG TABLET PO PRN (16:51)
[2021-07-02] MEDS: CARVEDILOL 3.125 MG TABLET PO SCH (17:00)
[2021-07-02] MEDS ORDERED: ZOLPIDEM TARTRATE 5MG TABLET PO PRN (21:00)
[2021-07-02] MEDS: FAMOTIDINE 20MG TABLET PO SCH (21:05)
[2021-07-02 22:35] VITALS: BP 160/103
[2021-07-02 22:50] VITALS: BP 175/112
[2021-07-02 23:00] VITALS: BP 161/88
[2021-07-02] MEDS ORDERED: VANCOMYCIN 1250MG in DEXTROSE 5% WATER 250ML IV NR (23:00)
[2021-07-03] MEDS: LORAZEPAM 2MG/ML CPJ IV PRN ×4 (00:02→23:22)
[2021-07-03] MEDS: DIPHENHYDRAMINE 50MG/ML VIAL IV PRN ×3 (00:52→20:02)
[2021-07-03 01:46] LABS: CREATINE KINASE 77 IU/L (26-192); CREATINE KINASE MB FRACTION 1.5 ng/mL (0.5-3.6)
[2021-07-03] MEDS: HYDROMORPHONE HCL/PF 2MG/ML CPJ IV PRN ×3 (04:24→18:31)
[2021-07-03] MEDS: CARVEDILOL 3.125 MG TABLET PO SCH ×2 (06:25→17:31)
[2021-07-03] MEDS: HYDRALAZINE HCL 50MG TABLET PO SCH ×3 (06:25→22:32)
[2021-07-03 07:04] LABS: BASOPHILS % 0.9 % (0.0-2.0); EOSINOPHILS % 4.7 % (0.0-5.0); HEMATOCRIT. 25.4 % (36.0-48.0); HEMOGLOBIN. 8.6 g/dL (12.0-16.0); LYMPHOCYTES % 12.9 % (20.0-50.0); MEAN CORPUSCULAR HEMOGLOBIN 31.6 pg (28.0-32.0); MEAN CORPUSCULAR VOLUME 92.9 fL (81.0-99.0); MEAN PLATELET VOLUME 6.9 fl (7.4-10.4); MONOCYTES % 13.1 % (2.0-8.0); NEUTROPHILS % 68.4 % (40.0-76.0); PLATELET 303 x1000/uL (130-400); RED BLOOD CELL COUNT 2.74 mill/uL (4.2-5.4); RED CELL DISTRIBUTION WIDTH 16.1 % (11.6-14.6)
[2021-07-03 07:08] LABS: CHLORIDE 102 mEq/L (98-107)
[2021-07-03 07:14] LABS: PHOSPHORUS 3.4 mg/dL (2.5-4.9)
[2021-07-03 08:00] VITALS: BP 151/93
[2021-07-03] MEDS: PIPERACILLIN/TAZOBACTAM 3.375 G in DEXTROSE 5% WATER 50 ML IV SCH (11:00)
[2021-07-03 12:00] VITALS: BP 157/98
[2021-07-03 16:00] VITALS: BP 164/102
[2021-07-03 20:00] VITALS: BP 175/107
[2021-07-03] MEDS: ONDANSETRON HCL 4MG/2ML INJ IV PRN (22:31)
[2021-07-03] MEDS: FAMOTIDINE 20MG TABLET PO SCH (22:31)
[2021-07-03] MEDS: CLONIDINE 0.1MG TABLET PO PRN (23:28)
[2021-07-04] VITALS: BP 169/101
[2021-07-04] MEDS: HYDROMORPHONE HCL/PF 2MG/ML CPJ IV PRN (01:33)
[2021-07-04] MEDS: PIPERACILLIN/TAZOBACTAM 3.375 G in DEXTROSE 5% WATER 50 ML IV SCH ×3 (01:43→21:17)
[2021-07-04] MEDS: ONDANSETRON HCL 4MG/2ML INJ IV PRN (02:42)
[2021-07-04] MEDS: LORAZEPAM 2MG/ML CPJ IV PRN ×4 (03:40→21:17)
[2021-07-04 04:00] VITALS: BP 158/100
[2021-07-04] MEDS: HYDRALAZINE HCL 50MG TABLET PO SCH ×3 (06:49→21:17)
[2021-07-04] MEDS: CARVEDILOL 3.125 MG TABLET PO SCH ×2 (06:50→18:16)
[2021-07-04] MEDS: DIPHENHYDRAMINE 50MG/ML VIAL IV PRN ×2 (06:59→16:18)
[2021-07-04 07:14] LABS: HEMATOCRIT. 26.6 % (36.0-48.0); HEMOGLOBIN. 8.8 g/dL (12.0-16.0); MEAN CORPUSCULAR HEMOGLOBIN 30.9 pg (28.0-32.0); MEAN CORPUSCULAR VOLUME 93.6 fL (81.0-99.0); MEAN PLATELET VOLUME 7.1 fl (7.4-10.4); PLATELET 306 x1000/uL (130-400); RED BLOOD CELL COUNT 2.85 mill/uL (4.2-5.4)
[2021-07-04 07:17] LABS: CHLORIDE 102 mEq/L (98-107)
[2021-07-04 08:00] VITALS: BP 112/60
[2021-07-04 10:39] LABS: PLATELET ESTIMATE NORMAL
[2021-07-04] MEDS ORDERED: VANCOMYCIN 1 G PREMIX 200 ML IV NR (11:00)
[2021-07-04 12:00] VITALS: BP 123/88
[2021-07-04] MEDS: TRAMADOL 50MG TABLET PO PRN (12:28)
[2021-07-04 16:00] VITALS: BP 137/84
[2021-07-04 20:00] VITALS: BP 140/90
[2021-07-04] MEDS: FAMOTIDINE 20MG TABLET PO SCH (21:17)
[2021-07-05] VITALS: BP 140/89
[2021-07-05] MEDS: TRAMADOL 50MG TABLET PO PRN ×2 (00:12→18:33)
[2021-07-05] MEDS: DIPHENHYDRAMINE 50MG/ML VIAL IV PRN ×3 (02:12→22:55)
[2021-07-05 04:00] VITALS: BP 117/80
[2021-07-05] MEDS: LORAZEPAM 2MG/ML CPJ IV PRN ×4 (04:03→21:02)
[2021-07-05] MEDS: HYDRALAZINE HCL 50MG TABLET PO SCH ×3 (06:57→21:01)
[2021-07-05] MEDS: CARVEDILOL 3.125 MG TABLET PO SCH ×2 (06:57→18:31)
[2021-07-05 08:20] VITALS: BP 118/80
[2021-07-05] MEDS: PIPERACILLIN/TAZOBACTAM 3.375 G in DEXTROSE 5% WATER 50 ML IV SCH ×2 (10:45→21:03)
[2021-07-05 20:00] VITALS: BP 131/86
[2021-07-05] MEDS: FAMOTIDINE 20MG TABLET PO SCH (21:01)
[2021-07-06] VITALS: BP 136/88
[2021-07-06] MEDS: LORAZEPAM 2MG/ML CPJ IV PRN ×2 (01:41→06:03)
[2021-07-06 04:00] VITALS: BP 150/97
[2021-07-06] MEDS: HYDRALAZINE HCL 50MG TABLET PO SCH (05:59)
[2021-07-06] MEDS: CARVEDILOL 3.125 MG TABLET PO SCH (06:00)
[2021-07-06] MEDS: DIPHENHYDRAMINE 50MG/ML VIAL IV PRN (07:06)
[2021-07-06 07:20] LABS: BASOPHILS % 0.9 % (0.0-2.0); EOSINOPHILS % 5.6 % (0.0-5.0); HEMOGLOBIN. 7.9 g/dL (12.0-16.0); LYMPHOCYTES % 17.5 % (20.0-50.0); MEAN CORPUSCULAR VOLUME 94.1 fL (81.0-99.0); MEAN PLATELET VOLUME 7.4 fl (7.4-10.4); PLATELET 234 x1000/uL (130-400); RED BLOOD CELL COUNT 2.55 mill/uL (4.2-5.4); RED CELL DISTRIBUTION WIDTH 16.5 % (11.6-14.6)
[2021-07-06 08:00] VITALS: BP 153/93
[2021-07-06 12:27] VITALS: BP 127/65
[2021-07-06] MEDS ORDERED: VANCOMYCIN 500 MG PREMIX 100 ML IV NR (18:00)
== END 2021-07-06 13:04 | disposition home or self-care (01) | DRG 199 ==
LOC: ER 09:37 → 6EST 11:42 → ENRESERV 12:21
PROVIDERS: ADMIT Internal Medicine; ATTEND Internal Medicine
PROC: 30233N1 Transfusion of Nonautologous Red Blood Cells into Peripheral Vein, Percutaneous Approach (ICD-10-PCS; principal; 2021-07-02)
PROC: 5A1D70Z Performance of Urinary Filtration, Intermittent, Less than 6 Hours Per Day (ICD-10-PCS; 2021-07-02)
PROC: 5A1D70Z Performance of Urinary Filtration, Intermittent, Less than 6 Hours Per Day (ICD-10-PCS; 2021-07-04)
PROC: 5A1D70Z Performance of Urinary Filtration, Intermittent, Less than 6 Hours Per Day (ICD-10-PCS; 2021-07-06)
DX: I16.1 Hypertensive emergency (principal); E44.0 Moderate protein-calorie malnutrition; N18.6 End stage renal disease; E87.1 Hypo-osmolality and hyponatremia; E83.51 Hypocalcemia; I50.9 Heart failure, unspecified; D64.9 Anemia, unspecified; I13.2 Hypertensive heart and chronic kidney disease with heart failure and with stage 5 chronic kidney disease, or end stage renal disease; K74.60 Unspecified cirrhosis of liver; G40.909 Epilepsy, unspecified, not intractable, without status epilepticus; G89.29 Other chronic pain; E03.9 Hypothyroidism, unspecified; F10.10 Alcohol abuse, uncomplicated; M54.9 Dorsalgia, unspecified; E78.00 Pure hypercholesterolemia, unspecified; F41.9 Anxiety disorder, unspecified; Y90.9 Presence of alcohol in blood, level not specified; Z99.2 Dependence on renal dialysis; Z91.018 Allergy to other foods; Z91.010 Allergy to peanuts; Z68.1 Body mass index [BMI] 19.9 or less, adult
CPT/HCPCS: 36415; 71045; 80048; 80053; 80185; 80202; 82550; 82553; 83735; 84100; 84484; 85025; 85027; 86705; 86709; 86803; 86850; 86900; 86920; 87340; 93005; 93970; 99285; C1893; J1170; J1200; J2060; J2405; J2543; J3370; J7060; P9016